=== PATIENT | female | born 1950 | race African-American/Black ===

== ENCOUNTER 2016-11-02 16:44 | Emergency (ER) | payer MEDICAID ==
[2016-11-02] VITALS (8 sets, daily range): BP systolic 135–171; BP diastolic 55–82
[~2016-11-02] VITALS: Ht 157.5 cm; Wt 63.5 kg
[2016-11-02] MEDS ORDERED: Morphine Sulfate 4mg/ml Inj IVP ONE ×3 (17:00→20:15)
[2016-11-02 17:03] LABS: MEAN CORPUSCULAR HGB CONC 32.4 G/DL (32.0-36.0); MEAN CORPUSCULAR VOLUME 90 FL (80-99); MEAN PLATELET VOLUME 5.9 FL (6.5-10.1); PLATELET COUNT 295 K/UL (150-450); RED BLOOD COUNT 2.64 M/UL (4.20-5.40); RED CELL DISTRIBUTION WIDTH 16.2 % (11.6-14.8); WHITE BLOOD COUNT 7.1 K/UL (4.8-10.8)
[2016-11-02 17:18] LABS: PROTHROMBIN TIME 10.3 SEC (9.30-11.50)
[2016-11-02 17:29] LABS: ALANINE AMINOTRANSFERASE 10 U/L (3-33); ANION GAP 18 (5-15); ASPARTATE AMINO TRANSFERASE 18 U/L (5-40); CALCIUM 8.4 mg/dL (8.6-10.2); CARBON DIOXIDE 20 mEQ/L (20-30); CHLORIDE 105 mEQ/L (98-107); HEMOLYSIS 0; LIPASE 58 U/L (< 60); POTASSIUM 3.6 mEQ/L (3.4-4.9); SODIUM 143 mEQ/L (135-145); TOTAL PROTEIN 6.2 g/dL (6.6-8.7)
[2016-11-02 17:42] LABS: GLOMERULAR FILTRATION RATE > 60 mL/min (>60)
[2016-11-02 17:44] LABS: ANISOCYTOSIS 1+; BAND NEUTROPHILS % (MANUAL) 0 % (0-8); BASOPHILS % (MANUAL) 0 % (0-2); EOSINOPHILS % (MANUAL) 1 % (0-3); LYMPHOCYTES % (MANUAL) 16 % (20-45); NEUTROPHILS % (MANUAL) 78 % (45-75); PLATELET ESTIMATE ADEQUATE; PLATELET MORPHOLOGY NORMAL; TOTAL CELLS COUNTED 100
--- NOTE | 2016-11-02 17:47 | Emergency Room Report ---
History of Present Illness General Chief Complaint: Pain Source: Patient, EMS Present Illness HPI The patient underwent breasts and abdominal surgery on October 24. This was performed in [facility]. Part of the surgery was breasts augmentation. This was in response to radiation therapy differences between her 2 breasts. The patient was in the hospital for 6 days and discharged home with drains. She was given OxyContin and was unable to fill the pain medication. The last 2 days she's gotten so weak that she cannot walk at this time. The pain is also severe. 04/15, abdomen and breasts, not radiate. No meds have helped. She has multiple drains - draining bloody fluid (not significant blood). No cough, sore throat. No pleuritic chest pain or hemoptysis. The patient denies any fevers, chills, nausea, vomiting, diarrhea, dysuria. She was last treated with radiation 13 years ago. She developed an abscess and this is what Dr. Montoya decided to take care of and then decided to have more extensive surgery. Allergies: Coded Allergies: HYDROMORPHONE (Verified Allergy, Unknown, 11/02/16) Patient History Past Medical History: see triage record Past Surgical History: other - recent procedures Social History: Denies: smoking Social History Narrative at home Reviewed Nursing Documentation: PMH: Agreed, PSxH: Agreed Nursing Documentation-PMH Past Medical History: No History, Except For Hx Cancer: Yes Review of Systems All Other Systems: negative except mentioned in HPI Physical Exam Vital Signs Date Time Temp Pulse Resp B/P Pulse Ox O2 Delivery O2 Flow Rate FiO2 11/02/16 16:45 98.4 60 18 150/90 100 Room Air Sp02 EP Interpretation: reviewed, normal General Appearance: well appearing, no apparent distress, GCS 15 Head: normocephalic, atraumatic Eyes: bilateral eye PERRL, bilateral eye conjunctivae pale, bilateral eye normal inspection ENT: moist mucus membranes Neck: supple Respiratory: lungs clear, normal breath sounds Cardiovascular #1: regular rate, rhythm Cardiovascular #2: 2+ radial (R) Gastrointestinal: soft, no organomegaly, non-distended, other - surgical drains lower chest and abdomen Musculoskeletal: normal inspection, digits/nails normal, gait/station normal, normal range of motion Neurologic: alert, oriented x3, motor strength/tone normal, DTRs symmetric, sensory intact, speech normal Psychiatric: mood/affect normal Skin: pallor Medical Decision Making Diagnostic Impression: Primary Impression: Anemia Qualified Codes: D50.8 - Other iron deficiency anemias Additional Impressions: Post-operative pain h/o breast cancer ER Course The patient presents with uncontrolled pain and weakness post operatively. Differential includes occult infection, anemia, with right imbalance, uncontrolled pain amongst others. Laboratory evaluation needs to be performed and the patient needs evaluation to exclude cardiac cause. Labs abdominal films and chest x-ray reveals obtained. The patient will be treated with IV hydration and also analgesia. Labs. significant for significant anemia. In the face of weakness and symptoms blood transfusion has been ordered. Discussed with Dr. [facility]. He accepts the patient in transfer. Patient received multiple doses of morphine and states initial ones had not helped at all. (Consider pain seeking behavior.) Patient received blood without complication. Patient transferred to [facility]. Laboratory Tests Test 11/02/16 16:35 11/02/16 17:40 White Blood Count 7.1 K/UL (4.8-10.8) Red Blood Count 2.64 M/UL (4.20-5.40) L Hemoglobin 7.7 G/DL (12.0-16.0) L Hematocrit 23.6 % (37.0-47.0) L Mean Corpuscular Volume 90 FL (80-99) Mean Corpuscular Hemoglobin 29.0 PG (27.0-31.0) Mean Corpuscular Hemoglobin Concent 32.4 G/DL (32.0-36.0) Red Cell Distribution Width 16.2 % (11.6-14.8) H Platelet Count 295 K/UL (150-450) Mean Platelet Volume 5.9 FL (6.5-10.1) L Neutrophils (%) (Auto) % (45.0-75.0) Lymphocytes (%) (Auto) % (20.0-45.0) Monocytes (%) (Auto) % (1.0-10.0) Eosinophils (%) (Auto) % (0.0-3.0) Basophils (%) (Auto) % (0.0-2.0) Differential Total Cells Counted 100 Neutrophils % (Manual) 78 % (45-75) H Lymphocytes % (Manual) 16 % (20-45) L Monocytes % (Manual) 5 % (1-10) Eosinophils % (Manual) 1 % (0-3) Basophils % (Manual) 0 % (0-2) Band Neutrophils 0 % (0-8) Platelet Estimate Adequate Platelet Morphology Normal Anisocytosis 1+ Prothrombin Time 10.3 SEC (9.30-11.50) Prothrombin Time INR 1.0 (0.9-1.1) PTT 26 SEC (23-33) Sodium Level 143 mEQ/L (135-145) Potassium Level 3.6 mEQ/L (3.4-4.9) Chloride Level 105 mEQ/L (98-107) Carbon Dioxide Level 20 mEQ/L (20-30) Anion Gap 18 (5-15) H Blood Urea Nitrogen 11 mg/dL (7-23) Creatinine 1.0 mg/dL (0.5-0.9) H Estimate Glomerular Filtration Rate > 60 mL/min (>60) Glucose Level 107 mg/dL (74-106) H Calcium Level 8.4 mg/dL (8.6-10.2) L Total Bilirubin 0.2 mg/dL (0.0-1.2) Aspartate Amino Transferase (AST) 18 U/L (5-40) Alanine Aminotransferase (ALT) 10 U/L (3-33) Alkaline Phosphatase 62 U/L (35-104) Total Creatine Kinase 61 U/L (26-140) Total Protein 6.2 g/dL (6.6-8.7) L Albumin 3.1 g/dL (3.5-5.2) L Globulin 3.1 g/dL Albumin/Globulin Ratio 1.0 (1.0-2.7) Lipase 58 U/L (< 60) Urine Color Pale yellow Urine Appearance Clear Urine pH 7 (4.5-8.0) Urine Specific [place] 1.015 (1.005-1.035) Urine Protein Negative (NEGATIVE) Urine Glucose (UA) Negative (NEGATIVE) Urine Ketones Negative (NEGATIVE) Urine Occult Blood 4+ (NEGATIVE) H Urine Nitrite Negative (NEGATIVE) Urine Bilirubin Negative (NEGATIVE) Urine Urobilinogen 1 MG/DL (0.0-1.0) H Urine Leukocyte Esterase 1+ (NEGATIVE) H Urine RBC 0 /HPF (0 - 2) Urine WBC 2-4 /HPF (0 - 2) Urine Squamous Epithelial Cells Few /LPF (NONE/OCC) Urine Bacteria None /HPF (NONE) EKG Diagnostic Results Rate: normal Rhythm: NSR ST Segments: no acute changes Rhythm Strip Diag. Results EP Interpretation: yes Rhythm: NSR, no PVC's, no ectopy Chest X-Ray Diagnostic Results EP Interpretation: Yes Findings: no consolidation, no effusion, no pneumothorax, no acute cardiopulmonary disease, other - surgical clips L Number of Views: 1 Other X-Ray Diagnostic Results Other X-Ray Diagnostic Results : X-Ray Ordered: abd EP Interpretation: Yes Findings: other - post surgical changes with drains, no obstruction Number of Views: 1 Last Vital Signs Date Time Temp Pulse Resp B/P Pulse Ox O2 Delivery O2 Flow Rate FiO2 11/02/16 23:08 97.8 63 16 157/68 100 Room Air Status: improved Dis[facility]: [facility] Condition: Serious - [place] Referrals: [facility]ERR[facility] (PCP) All Au M.D. Nov 02, 2016 17:47
[2016-11-02 18:07] LABS: APPEARANCE,URINE CLEAR; KETONES,URINE NEGATIVE (NEGATIVE); LEUKOCYTE ESTERASE ,URINE 1+ (NEGATIVE); NITRITE,URINE NEGATIVE (NEGATIVE); PH,URINE 7 (4.5-8.0); PROTEIN,URINE NEGATIVE (NEGATIVE); UROBILINOGEN,URINE 1 MG/DL (0.0-1.0)
[2016-11-02 18:18] LABS: RBC,URINE 0 /HPF (0 - 2); SQUAMOUS EPITHELIAL CELL,UR FEW /LPF (NONE/OCC)
--- NOTE | 2016-11-03 09:28 | Diagnostic Imaging Report ---
Indications: Abdominal pain. Technique: AP view of the abdomen Findings: Comparison: None. Bowel gas pattern is unremarkable. No abnormal calcific or soft tissue densities are demonstrated. Disc space narrowing with marginal osteophyte formation lower lumbar spine. Multiple surgical soft tissue drains.. IMPRESSION: Evidence of recent abdominopelvic surgery, nonspecific, otherwise no evidence of acute abdominopelvic disease Degenerative spondylosis.
--- NOTE | 2016-11-03 09:30 | Diagnostic Imaging Report ---
Indication: Chest pain Technique: Single AP view of the chest. Findings: Comparison: None. Soft tissue drainage catheter overlies left hemithorax. Surgical clips overlie left midlung and left axilla. Aortic arch mildly calcified. The bones and extra pulmonary soft tissues, cardiomediastinal silhouette, pulmonary vasculature and parenchyma, and pleural surfaces are otherwise unremarkable. IMPRESSION: Evidence of recent left hemithoracic surgery Aortosclerosis Otherwise negative.
--- NOTE | 2016-11-03 14:21 | Cardiology Report ---
APPROVED REPORT EKG Measurement Heart [id number] Normal sinus rhythm Left axis deviation Incomplete right bundle branch block Abnormal ECG
== END 2016-11-02 23:09 | disposition short-term general hospital (02) ==
LOC: EDBD 16:44 → EMR 17:33
DX: D64.9 Anemia, unspecified (principal); G89.18 Other acute postprocedural pain; Z98.890 Other specified postprocedural states; Z85.3 Personal history of malignant neoplasm of breast; Z88.5 Allergy status to narcotic agent; Z98.82 Breast implant status
CPT/HCPCS: 36415; 71010; 74000; 80053; 81003; 82550; 82962; 83605; 83690; 85007; 85025; 85610; 85730; 86850; 86900; 86901; 86920; 87040; 93005; 96360; 96374; 96375; 99285; J2270; J2405; P9016